=== PATIENT | male | born 1990 | race Hispanic/Latino ===

== ENCOUNTER 2017-10-27 14:16 | Emergency (ER) | payer BC ==
[2017-10-27 14:20] VITALS: BMI 18.8
[2017-10-27] MEDS ORDERED: cefTRIAXone (Rocephin) 250 mg Inj IM ONE (14:41)
--- NOTE | 2017-10-27 14:45 | ED PDOC ---
HPI: Male Pain Time Seen by Provider: 10/27/17 14:32 Chief Complaint (Provider): Male Genitourinary History Per: Patient History/Exam Limitations: no limitations Onset/Duration Of Symptoms: Days Current Symptoms Are (Timing): Still Present Quality Of Discomfort: Unable To Describe Additional Complaint(s): 26 y/o male presents to the ED for an STD evaluation. Patient states he is "certain" of having gonorrhea. 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 Patient additionally reports of having multiple partners and does use protection "when he remembers". Patient states the [facility] was closed today and thus came to the ED to be tested and treated for an STD. PMD: None Provided Past Medical History Reviewed: Historical Data, Nursing Documentation, Vital Signs Vital Signs: Last Vital Signs Temp 98.5 F 10/27/17 14:21 Pulse 104 H 10/27/17 14:21 Resp 20 10/27/17 14:21 BP 158/79 H 10/27/17 14:21 Pulse Ox 98 10/27/17 14:21 - Medical History PMH: No Chronic Diseases - Surgical History Surgical History: No Surg Hx - Family History Family History: States: Unknown Family Hx - Allergies Allergies/Adverse Reactions: Allergies Allergy/AdvReac Type Severity Reaction Status Date / Time No Known Allergies Allergy Verified 10/27/17 14:41 Review of Systems ROS Statement: Except As Marked, All Systems Reviewed And Found Negative Genitourinary Male: Positive for: Other (Whitish Discharge) Physical Exam - Reviewed Nursing Documentation Reviewed: Yes Vital Signs Reviewed: Yes - Physical Exam Appears: Positive for: No Acute Distress Male Genital Exam: Positive for: normal genitalia Neurologic/Psych: Positive for: Alert, Oriented (x3). Negative for: Motor/ Sensory Deficits - ECG O2 Sat by Pulse Oximetry: 98 (RA) Pulse Ox Interpretation: Normal Disposition - Clinical Impression Clinical Impression: STD (sexually transmitted disease) - Patient ED Disposition Is Patient to be Admitted: No Doctor Will See Patient In The: Office Counseled Patient/Family Regarding: Diagnosis, Need For Followup - Disposition Referrals: [facility] [Outside] [facility] [Outside] Disposition: Routine/Home Disposition Time: 14:53 Condition: STABLE Instructions: Screening for Sexually Transmitted Infections Forms: [employer] ([place]) - POA Present On Arrival: None
[2017-10-27] MEDS ORDERED: cefTRIAXone (Rocephin) 250 mg Inj ONE (14:55)
[2017-10-27] MEDS ORDERED: Sterile Water 10 ML IV ONE (14:56)
[2017-10-27 15:19] VITALS: BP 142/78; PULSE 97; RESP 17; TEMP 98.3; O2SAT 100
== END 2017-10-27 15:19 | disposition home or self-care (01) ==
LOC: H.ER 14:16
DX: A54.9 Gonococcal infection, unspecified (principal); A64 Unspecified sexually transmitted disease
CPT/HCPCS: 87491; 87591; 96372; 99283; J0696

== ENCOUNTER 2018-06-06 19:18 | Emergency (ER) | payer BC ==
[2018-06-06 19:19] VITALS: BMI 18.8
[2018-06-06] MEDS ORDERED: Tmp-Smz 800 mg-160 mg DS Tab PO STA (19:47)
--- NOTE | 2018-06-06 20:02 | ED PDOC ---
Upper Extremity Pain/Injury Time Seen by Provider: 06/06/18 19:18 Chief Complaint (Nursing): Upper Extremity Problem/Injury Chief Complaint (Provider): Upper Extremity Problem/Injury History Per: Patient History/Exam Limitations: no limitations Onset/Duration Of Symptoms: Days (x1) Current Symptoms Are (Timing): Still Present Additional Complaint(s): 27 year old male, right hand dominant with no significant medical history, presents to the emergency department with a complaint of swelling and redness to his right, second digit since yesterday. Patient states, initially, he had a pimple on his finger, in which, he popped and applied Neosporin then woke up today with symptoms. Of note, he reports that he was helping a friend with (+) MRSA wound and expresses concern that he might have contracted the infection. Additionally, he lists occupation as a overnight stocker. Otherwise, he denies fever, chills, nausea, or vomiting. PCP: none provided Past Medical History Reviewed: Historical Data, Nursing Documentation, Vital Signs Vital Signs: Last Vital Signs Temp 98.9 F 06/06/18 19:36 Pulse 103 H 06/06/18 19:36 Resp 20 06/06/18 19:36 BP 149/83 06/06/18 19:36 Pulse Ox 98 06/06/18 19:36 - Medical History PMH: No Chronic Diseases - Family History Family History: States: Unknown Family Hx - Social History Current smoker - smoking cessation education provided: Yes Alcohol: Occasional Drugs: Denies - Home Medications Home Medications: Ambulatory Orders Medication Instructions Recorded Clindamycin [Cleocin] 450 mg PO TID 7 Days #21 cap 06/06/18 Ibuprofen [Motrin] 600 mg PO Q6H PRN #30 tab 06/06/18 - Allergies Allergies/Adverse Reactions: Allergies Allergy/AdvReac Type Severity Reaction Status Date / Time No Known Allergies Allergy Verified 06/06/18 19:36 Review of Systems ROS Statement: Except As Marked, All Systems Reviewed And Found Negative Constitutional: Negative for: Fever, Chills Gastrointestinal: Negative for: Nausea, Vomiting Musculoskeletal: Positive for: Other (right, 2nd digit swelling with redness) Physical Exam - Reviewed Nursing Documentation Reviewed: Yes Vital Signs Reviewed: Yes - Physical Exam Appears: Positive for: Non-toxic, No Acute Distress Pulses-Radial (R): 2+ Extremity: Positive for: Normal ROM (right wrist and digits with 5/5 strength of extensor tendons), Capillary Refill (< 2 seconds to right hand), Swelling ( diffusely to right hand but significant between PIP and MIP joints of second digit) Neurological/Psych: Positive for: Awake, Alert, Oriented. Negative for: Motor/Sensory Deficits - Laboratory Results Result Diagrams: 06/06/18 20:02 06/06/18 20:02 - ECG O2 Sat by Pulse Oximetry: 98 (RA) Pulse Ox Interpretation: Normal Medical Decision Making Medical Decision Making: Time: 1943 Initial Plan: Case discussed with Dr. Macias who will evaluate patient at bedside. * Labs including blood culture * XR right hand * Cleocin IVPB Time: 2147 --CBC/BMP reviewed: (-) significant abnormality or elevated WBC detected. Patient was evaluated by Dr. Macias at bedside who recommends continue use of antibiotics and follow up with hand specialist on 06/09/18. In the case that patient cannot obtain an appointment or if symptoms worsen prior to being seen, he is advised to return to ED immediately. Patient, additionally, advised to call ED in 2-3 days for blood culture results and instructed not to work as overnight stocker until cleared by specialist. Upon provider reevaluation, patient is medically stable and requires no further treatment in the ED at this time. Findings and plan were discussed with patient who verbalizes understanding. Patient will be discharged home. Counseling was provided and all questions were answered regarding diagnosis. There is agreement to discharge plan. Return precautions discussed. Clinical Impression: cellulitis of hand excluding fingers Scribe Attestation: Documented by Elsy Conte, acting as a scribe for Alesha Li APN. Provider Scribe Attestation: All medical record entries made by the Scribe were at my direction and personally dictated by me. I have reviewed the chart and agree that the record accurately reflects my personal performance of the history, physical exam, medical decision making, and the department course for this patient. I have also personally directed, reviewed, and agree with the discharge instructions and disposition. Disposition - Clinical Impression Clinical Impression: Cellulitis of hand excluding fingers - Patient ED Disposition Is Patient to be Admitted: No Counseled Patient/Family Regarding: Diagnosis, Need For Followup, Rx Given - Disposition Referrals: Naren De La Paz MD [Medical Doctor] - Disposition: Routine/Home Disposition Time: 21:49 Condition: STABLE Additional Instructions: Call Dr. De La Paz for appointment. If unable to see hand specialist on Saturday, return to ED for follow-up Prescriptions: Clindamycin [Cleocin] 450 mg PO TID 7 Days #21 cap Ibuprofen [Motrin] 600 mg PO Q6H PRN #30 tab PRN Reason: Pain, Moderate (4-7) Instructions: Cellulitis (Skin Infection), Adult (DC) Forms: [facility] ED School/Work Excuse - POA Present On Arrival: None
[2018-06-06 20:06] LABS: BASO % 0.3 % (0.0-2.0); EOS % 0.6 % (0.0-4.0); HEMOGLOBIN 14.9 g/dL (12.0-18.0); LYMPH # 1.7 K/uL (1.0-4.3); LYMPH % 21.3 % (20.0-40.0); MEAN CELL VOLUME 89.4 fl (80.0-94.0); MEAN CORPUSCULAR HEMOGLOBIN 29.5 pg (27.0-31.0); MONO # 0.6 K/uL (0.0-0.8); MONO % 7.9 % (0.0-10.0); NEUT # 5.5 K/uL (1.8-7.0); NEUT % 69.9 % (50.0-75.0); RBC 5.04 Mil/uL (4.40-5.90); RED CELL DISTRIBUTION WIDTH 13.8 % (11.5-14.5); WHITE BLOOD COUNT 7.9 K/uL (4.8-10.8)
[2018-06-06] MEDS ORDERED: Clindamycin 600mg/50ml D5W 600 MG/50 ML VIAL IVPB SCH (20:15)
[2018-06-06] MEDS ORDERED: Clindamycin 600mg/50ml D5W 600 MG/50 ML VIAL IVPB ONE (20:15)
[2018-06-06 20:45] LABS: BLOOD UREA NITROGEN 11 mg/dl (9-20); CALCIUM 9.9 mg/dL (8.4-10.2); GFR NON-AFRICAN AMERICAN > 60
[2018-06-06 22:01] VITALS: BP 138/88; PULSE 94; RESP 18; TEMP 98.8
[2018-06-06 22:02] VITALS: O2SAT 98
--- NOTE | 2018-06-07 09:18 | RAD ---
PROCEDURE: Right Hand Radiographs. HISTORY: and swelling and pain COMPARISON: None. TECHNIQUE: 3 views obtained. FINDINGS: BONES: No acute fracture. JOINTS: Unremarkable. SOFT TISSUES: Normal. OTHER FINDINGS: None. IMPRESSION: No demonstrated fracture or dislocation.
== END 2018-06-06 22:08 | disposition home or self-care (01) ==
LOC: H.ER 19:18
DX: L03.119 Cellulitis of unspecified part of limb (principal); F17.200 Nicotine dependence, unspecified, uncomplicated

== ENCOUNTER 2018-06-09 13:49 | Emergency (ER) | payer BC ==
[2018-06-09 13:49] VITALS: BMI 18.8
[2018-06-09 14:10] VITALS: RESP 16
--- NOTE | 2018-06-09 14:45 | ED PDOC ---
HPI: Skin/Bite Injury Time Seen by Provider: 06/09/18 14:38 Chief Complaint (Nursing): Abnormal Skin Integrity Chief Complaint (Provider): Abnormal Skin Integrity History Per: Patient History/Exam Limitations: no limitations Onset/Duration Of Symptoms: Days Current Symptoms Are (Timing): Better Additional Complaint(s): 27 y/o male presents to the ED for a follow up evaluation of swelling and redness to his right second digit. Patient was seen in this ED 3 days ago complaining of swelling and redness to the right second digit. At that time, patient reported of noticing a pimple on that finger that popped. Patient applied neosporin and woke up with the swelling and redness to that area. Patient states since discharge home, he has been compliant with prescribed me dications and is currently on day 3 of the course. Patient notes pain has decreased since last visit here. Patient presented here today stating he was unable to follow up with the hand specialist and was told to return in 3 days. Otherwise, patient additionally denies fever, additional drainage, chills, nausea and vomiting. PMD: none provided Past Medical History Reviewed: Historical Data, Nursing Documentation, Vital Signs Vital Signs: Last Vital Signs Temp 98.1 F 06/09/18 14:07 Pulse 99 H 06/09/18 14:07 Resp 16 06/09/18 14:07 BP 134/87 06/09/18 14:07 Pulse Ox 99 06/09/18 14:07 - Medical History PMH: No Chronic Diseases - Surgical History Surgical History: No Surg Hx - Family History Family History: States: Unknown Family Hx - Home Medications Home Medications: Ambulatory Orders Medication Instructions Recorded Clindamycin [Cleocin] 450 mg PO TID 7 Days #21 cap 06/06/18 Ibuprofen [Motrin] 600 mg PO Q6H PRN #30 tab 06/06/18 - Allergies Allergies/Adverse Reactions: Allergies Allergy/AdvReac Type Severity Reaction Status Date / Time No Known Allergies Allergy Verified 06/06/18 19:36 Review of Systems ROS Statement: Except As Marked, All Systems Reviewed And Found Negative Constitutional: Positive for: Other (follow up for right second digit ). Negative for: Fever Musculoskeletal: Positive for: Hand Pain (mild swelling and redness to the second right digit) Physical Exam - Reviewed Nursing Documentation Reviewed: Yes Vital Signs Reviewed: Yes - Physical Exam Appears: Positive for: No Acute Distress (Patient evaluated by me on Saturday (3 days ago)) Extremity: Positive for: Normal ROM (Normal ROM of right 2nd digit with normal flexion and extension of finger. ), Tenderness (Slight tenderness to the affected area between the DIP and PIP joint of the right 2nd digit. ), Capillary Refill (< 2 seconds), Swelling (Noted that redness and swelling of the 2nd digit have decresed significantly. Swelling and redness of the finger between DIP and PIP joints have resolved. ), Other (Slight redness noted around the small pimple-like lesion patient presented with on Saturday. Lesion is now closed with no drainage. ) - ECG O2 Sat by Pulse Oximetry: 99 (RA) Pulse Ox Interpretation: Normal Medical Decision Making Medical Decision Making: Time: 1944 Plan: -- Patient unable to get appointment with hand specialist. Patient instructed to continue taking antibiotics. Patient cleared to go back to work by me tomorrow. Patient additionally instructed to keep finger dressed and clean while at work. Patient given return ED precautions. Scribe Attestation: Documented by Yonatan Babin, acting as a scribe CELIA Smith. Provider Scribe Attestation: All medical record entries made by the Scribe were at my direction and personally dictated by me. I have reviewed the chart and agree that the record accurately reflects my personal performance of the history, physical exam, medical decision making, and the department course for this patient. I have also personally directed, reviewed, and agree with the discharge instructions and disposition. Disposition - Clinical Impression Clinical Impression: Visit for wound check - Patient ED Disposition Is Patient to be Admitted: No Counseled Patient/Family Regarding: Diagnosis - Disposition Disposition: Routine/Home Disposition Time: 14:49 Condition: IMPROVED Instructions: Cellulitis (Skin Infection), Adult (DC) Forms: [facility] ED School/Work Excuse - POA Present On Arrival: None
[2018-06-09 15:05] VITALS: BP 126/77; PULSE 82; TEMP 97.8
[2018-06-10 02:16] VITALS: O2SAT 99
== END 2018-06-09 15:04 | disposition home or self-care (01) ==
LOC: H.ER 13:49
DX: Z48.00 Encounter for change or removal of nonsurgical wound dressing (principal)